=== PATIENT | male | born 1970 | race Caucasian/White ===

== ENCOUNTER 2021-12-06 06:23 | Day surgery (SDC) | payer OTHER ==
[~2021-12-06 06:23] MED LIST: FENOFIBRATE145 MG PO; GLUMETZA500 MG PO; TOPROL XL25 M1 PO
== END 2021-12-06 16:10 | disposition home or self-care (01) ==
LOC: CIR.AMB 06:23
PROVIDERS: ATTEND Urology
DX: N47.1 Phimosis (principal); N47.7 Other inflammatory diseases of prepuce; Z20.822 Contact with and (suspected) exposure to COVID-19; I10 Essential (primary) hypertension; Z79.84 Long term (current) use of oral hypoglycemic drugs; E11.9 Type 2 diabetes mellitus without complications